=== PATIENT | female | born 2000 | race Caucasian/White ===

== ENCOUNTER 2021-02-14 17:53 | Emergency (ER) | payer SELFPAY ==
[2021-02-14 17:54] VITALS: BP 138/107; PULSE 91; RESP 18; TEMP 37.1; O2SAT 97; BMI 47.7
--- NOTE | 2021-02-14 19:13 | EX.ED.DYSGE1 ---
HPI History of Present Illness Chief Complaint: General Illness Narrative Narrative: Patient exposed to COVID-19. She had symptoms for 3 days. She states she has a mild cough and mild shortness of breath. She denies fever, body aches, change in taste or smell. She has some mild nausea without vomiting. Patient denies having a fever. She denies chest pain. PFSH PFSH Medical History ADHD Anxiety Asthma Depression Fibromyalgia Migraine Home Medications albuterol 2 mcg INHALATION Q6H 02/14/21 [History Last Taken Unknown] aripiprazole [Abilify] 15 mg PO DAILY 02/14/21 [History Last Taken Unknown] duloxetine [Cymbalta] 60 mg PO DAILY 02/14/21 [History Last Taken Unknown] methylphenidate HCl [Concerta] 54 mg PO DAILY 02/14/21 [History Last Taken Unknown] norethindrone (contraceptive) 0.35 mg PO DAILY 02/14/21 [History Last Taken Unknown] ondansetron 4 mg PO Q8H PRN PRN #10 tab 02/14/21 [Rx Last Taken Unknown] topiramate [Topamax] 100 mg PO DAILY 02/14/21 [History Last Taken Unknown] Allergy/AdvReac Type Severity Reaction Status Date / Time carbamazepine [From Tegretol] Allergy Rash Verified 02/14/21 18:43 phenytoin [From Dilantin] Allergy Rash Verified 02/14/21 18:43 ibuprofen AdvReac Swelling Verified 02/14/21 18:43 Surgical History History of tonsillectomy Social History Smoking Status: Never smoker ROS ROS ED Constitutional Constitutional ED: Denies chills, fever(s) or sweats Eyes Eyes: Denies blurry vision or diplopia ENT ENT ED: Denies rhinorrhea or sore throat Cardiovascular Cardiovascular: Denies chest pain or palpitations Respiratory/Chest Respiratory/Chest: Reports cough and dyspnea Gastrointestinal Gastrointestinal: Denies abdominal pain or nausea Genitourinary Genitourinary ED: Denies dysuria or hematuria Musculoskeletal Musculoskeletal: Denies arthralgias, back pain, myalgias or neck pain Integumentary Denies Abrasions or rash Neurologic Neurologic: Denies headache(s) or paresthesias Psychiatric Psychiatric: Reports anxiety; Denies suicidal ideation or suicidal thoughts EXAM Physical Exam Const Vital Signs: 02/14/21 17:54 02/14/21 18:14 Temperature 98.8 F Temperature Source Temporal Pulse Rate 91 Respiratory Rate 18 Respiratory Effort Normal Non-Labored Respiratory Pattern Normal Blood Pressure 138/107 H Blood Pressure Mean 117 Pulse Ox 97 Oxygen Delivery Method Room Air Positive well nourished General Appearance ED: NAD; Negative for pallor HEENT Reports moist mucous membranes Negative for trauma Eyes PERRL and EOMs intact bilaterally Resp normal respiratory effort and clear to auscultation bilaterally Cardio regular rate and regular rhythm Neuro oriented x3 and CN's II-XII intact bilaterally Sensorium / Orientation: alert Skin no rashes or lesions noted and no wounds General Skin Exam: Negative for jaundice or pallor MDM MDM MDM Narrative Medical decision making narrative: Patient concerned she was exposed to COVID-19. She has mild symptoms of cough and mild dyspnea. Her vital signs are completely normal. She is not hypoxic, tachypneic, tachycardic, febrile. He does complain of some mild nausea. She is able to eat and drink. Covid testing was negative today. Patient counseled to stay well-hydrated. She is a follow-up appointment on the for which she should be medically clear as long as she is 48 hours symptom-free. Patient stable for discharge at this time. Impression: 1. Viral syndrome Discharge Plan Triage Chief Complaint: General Illness ED Provider: Jerson Ayala Dx/Rx/DC Orders Instructions: ED Viral Syndrome (Adult) Prescriptions: New ondansetron 4 mg tablet,disintegrating 4 mg PO Q8H PRN PRN (Reason: Nausea) Qty: 10 RF: 0 No Action albuterol 90 mcg/actuation Aerosol 2 mcg INHALATION Q6H RF: 0 methylphenidate HCl [Concerta] 54 mg Tablet Extended Release 24hr 54 mg PO DAILY RF: 0 norethindrone (contraceptive) 0.35 mg Tablet 0.35 mg PO DAILY RF: 0 topiramate [Topamax] 100 mg Tablet 100 mg PO DAILY RF: 0 aripiprazole [Abilify] 15 mg Tablet 15 mg PO DAILY RF: 0 duloxetine [Cymbalta] 60 mg Capsule,Delayed Release(Dr/Ec) 60 mg PO DAILY RF: 0 Primary Care Provider: Care Physician,No Primary Referrals: [facility] Doctor,Out of [NON-STAFF] - Disposition Disposition: Home, Self Care
== END 2021-02-14 19:41 | disposition home or self-care (01) ==
PROVIDERS: Emergency Provider Student in an Organized Health Care Education/Training Program
DX: B34.9 Viral infection, unspecified (principal); F41.9 Anxiety disorder, unspecified; J45.909 Unspecified asthma, uncomplicated; F32.9 Major depressive disorder, single episode, unspecified; M79.7 Fibromyalgia; Z79.899 Other long term (current) drug therapy
CPT/HCPCS: 87426; 99282